=== PATIENT | male | born 1955 | race Caucasian/White ===

== ENCOUNTER 2025-01-11 19:27 | Inpatient (IN) | payer MEDICARE, SELFPAY ==
[2025-01-11 19:29] VITALS: BP 124/66; PULSE 95; RESP 18; TEMP 37.6; O2SAT 95
[2025-01-11 19:45] VITALS: BMI 33.3
--- NOTE | 2025-01-11 19:48 | US_ITS ---
PROCEDURE: VENOUS DUPLEX IMAG/LIMITED/UNI 01/11/2025 REASON FOR EXAM: Right lower extremity swelling TECHNIQUE: Grayscale color flow and doppler analysis of the right lower extremity. COMPARISON: None US/Venous Duplex Imag/Limited/Uni IMPRESSION: No acute occlusive deep vein thrombosis. Reading Location: [id number]
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
[2025-01-11] MEDS: 0.9% Normal Saline (1000mL) 1,000 ML 1000 ML IV (19:59)
[2025-01-11] MEDS: Acetaminophen 325 MG Tablet 650 MG PO (19:59)
[2025-01-11 20:24] LABS: Absolute Lymphocyte Count 0.96 X10^3/uL (0.83-4.51); Absolute Neutrophil Count 17.4 X10^3/uL (2.0-7.7); Basophil# 0.03 X10^3/uL; Basophil% 0.2 % (0-1); Hematocrit 39.6 % (40-54); Hemoglobin 13.3 g/dL (13.0-16.5); Lymphocyte # 0.96 X10^3/ul (0.83-4.51); Lymphocyte % 4.8 % (19-41); Mean Corp Hgb Conc 33.6 g/dL (32-36); Mean Corpuscular Hgb 28.8 pg (27.0-32.0); Mean Corpuscular Volume 85.7 fL (80-94); Mean Platelet Vol. 10.5 fl (6.2-12.0); Monocyte# 1.45 X10^3/uL; Monocyte% 7.3 % (0-10); NRBC Flagged by Analyzer 0 % (0-5); Neutrophil % 86.9 % (47-70); Platelet Count 290 K/mm3 (150-450); RBC Distribution Width CV 13.2 % (11.6-14.6); RBC Distribution Width SD 41.2 fl (35.1-43.9); Red Blood Count 4.62 M/mm3 (4.6-6.2)
[2025-01-11] MEDS: Ampicillin/Sulbactam 3 GM in 0.9% Normal Saline (100mL MB+) 100 ML IV (20:30)
[2025-01-11 20:55] LABS: Anion Gap 17 (5-15); BUN 17 mg/dL (4-19); Calcium,Total 8.6 mg/dL (7.6-11.0); Carbon Dioxide 18.7 mmol/L (21.0-32.0); Chloride 95 mmol/L (98-108); Creatinine, Serum 0.97 mg/dL (0.70-1.20); EST Glomerular Filtration Rate 85 (>60); Estimated Creatinine Clearance 82.14 ml/min (50-250); Glucose 157 mg/dL (70-99); Potassium 3.4 mmol/L (3.3-5.1); Sodium Level 131 mmol/L (133-145)
[2025-01-11 20:56] LABS: Lactic Acid 2.4 mmol/L (0.0-2.0)
[2025-01-11] MEDS: Vancomycin HCl 2,000 MG in 0.9% Normal Saline (500mL Bag) 500 ML 250 MG IV (21:04)
[2025-01-11 21:09] VITALS: BP 121/70; PULSE 90; RESP 30; RESP 32; O2SAT 88; O2SAT 92
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
[2025-01-11 22:15] VITALS: BP 114/70; PULSE 80; PULSE 86; RESP 32; TEMP 37.7; O2SAT 98
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
--- NOTE | 2025-01-11 22:40 | RAD_ITS ---
PROCEDURE: CHEST PA AND LATERAL 01/11/2025 REASON FOR EXAM: HYPOXIA TECHNIQUE: Frontal and lateral views of the chest. COMPARISON: None FINDINGS: Patient positioning on the lateral view limits this evaluation. Hardware: None Mediastinum: Mild cardiomegaly. There is perihilar fullness bilaterally. Lungs: Low lung volumes. Interstitial markings are diffusely increased. No significant pleural effusion. There is a nodular opacity in the left mid lung zone measuring 8 mm. Bones: Degenerative changes are identified within the thoracic spine. Surgical clips in the right upper quadrant of the abdomen. RAD/Chest PA and Lateral IMPRESSION: 1. Increased interstitial markings with mild cardiomegaly, as may be seen with pulmonary edema. Hypoventilatory changes or atypical/viral infection could also appear similar. 2. Nodular opacity measuring 8 mm in the left mid lung zone. Consider nonemer gent CT for further evaluation. Reading Location: [facility]
[2025-01-11 23:00] LABS: International Normalized Ratio 1.2
[2025-01-11 23:01] LABS: Partial Thromboplast Time 32.7 Seconds (24.1-36.2)
--- NOTE | 2025-01-11 23:35 | PCM.RX.CS ---
Consult Antibiotic Management Pharmacy has been consulted to manage selected antibiotic: Vancomycin Type of Intervention Type of Consult: New start Labs Labs: Sodium 131 mmol/L (133-145) L 01/11/25 20:00 Potassium 3.4 mmol/L (3.3-5.1) 01/11/25 20:00 Chloride 95 mmol/L (98-108) L 01/11/25 20:00 Carbon Dioxide 18.7 mmol/L (21.0-32.0) L 01/11/25 20:00 Anion Gap 17 (5-15) H 01/11/25 20:00 BUN 17 mg/dL (4-19) 01/11/25 20:00 Creatinine 0.97 mg/dL (0.70-1.20) 01/11/25 20:00 Est GFR (MDRD) Non-Af 85 (>60) 01/11/25 20:00 BUN/Creatinine Ratio 18.0 RATIO (10-20) 01/11/25 20:00 Glucose 157 mg/dL (70-99) H 01/11/25 20:00 Microbiology Microbiology: Microbiology 01/11/25 21:48 Mucosa - Nose SARS-CoV-2, Influenza & RSV (PCR) - Final Dosing Weight Weight used for dosin.4 kg Estimated Creatinine Clearance Estimated Creatinine Clearance: 82.14 Goal Trough Goal Trough: 15-20 mcg/mL Pharmacy Plan for Drug Dosing Pharmacy Plan for Drug Dosing: Pharmacy Service will continue to monitor and adjust dosing as required. 2GM GIVEN IN ER 01/11 @ 8866. START 1750MG Q12H AND DRAW TROUGH PRIOR TO 4TH DOSE Follow-Up Labs Follow-Up Labs: Trough: Vancomycin Date/Time Labs Ordered Labs to be done on [date and time ordered]: 01/13 @ 8111
[2025-01-11 23:42] VITALS: BMI 33.5
[2025-01-12] VITALS (7 sets, daily range): BP systolic 96–118; BP diastolic 58–68; PULSE 75–92; RESP 18–20; TEMP 36.7–38.4; O2SAT 90–95; BMI 33.3
[2025-01-12 00:05] LABS: Reflex Lactate? Y
[2025-01-12 00:58] LABS: Pro- Brain NATRIURETIC PEPTIDE 244 pg/mL (<=900)
[2025-01-12 01:06] LABS: Lactic Acid 2.1 mmol/L (0.0-2.0)
[2025-01-12] MEDS: 0.9% Normal Saline (1000mL) 1,000 ML 125 ML IV (01:36)
[2025-01-12] MEDS: Piperacil/Tazobactam 3.375 GM in 0.9% Normal Saline (50mL MB+) 50 ML IV ×4 (01:37→22:02)
[2025-01-12 05:42] LABS: Absolute Lymphocyte Count 0.82 X10^3/uL (0.83-4.51); Basophil# 0.04 X10^3/uL; Basophil% 0.2 % (0-1); Eosinophil# 0.03 X10^3/uL; Eosinophils% 0.1 % (0-5); Hematocrit 36.4 % (40-54); Hemoglobin 12.1 g/dL (13.0-16.5); Lymphocyte # 0.82 X10^3/ul (0.83-4.51); Lymphocyte % 3.9 % (19-41); Mean Corp Hgb Conc 33.2 g/dL (32-36); Mean Corpuscular Hgb 28.4 pg (27.0-32.0); Mean Corpuscular Volume 85.4 fL (80-94); Mean Platelet Vol. 10.9 fl (6.2-12.0); Monocyte# 1.21 X10^3/uL; Monocyte% 5.7 % (0-10); NRBC Flagged by Analyzer 0 % (0-5); Neutrophil % 89.2 % (47-70); POSITIVE MORPHOLOGY YES; Platelet Count 249 K/mm3 (150-450); RBC Distribution Width CV 13.3 % (11.6-14.6); RBC Distribution Width SD 41.5 fl (35.1-43.9); Red Blood Count 4.26 M/mm3 (4.6-6.2); White Blood Count 21.3 K/mm3 (4.4-11.0)
[2025-01-12 05:46] LABS: Differential Indicated SCAN CRITERIA MET
[2025-01-12 06:24] LABS: Albumin, Serum 3.3 g/dL (3.4-4.8); BUN 19 mg/dL (4-19); BUN/Creat Ratio 18.7 RATIO (10-20); EST Glomerular Filtration Rate 81 (>60); Estimated Creatinine Clearance 79.91 ml/min (50-250); Glucose 162 mg/dL (70-99); Protein, Total 6.2 g/dL (5.9-8.4)
[2025-01-12 06:25] LABS: ALB/GLOB Ratio 1.1 RATIO (0.9-2.4); AST(SGOT) 28 U/L (<=37); Alanine Aminotransfer ALT/SGPT 21 U/L (<=46); Alkaline Phosphatase 58 U/L (40-129); Anion Gap 16 (5-15); Calcium,Total 7.9 mg/dL (7.6-11.0); Carbon Dioxide 17.1 mmol/L (21.0-32.0); Chloride 99 mmol/L (98-108); Globulin 2.9 g/dL (2.2-4.2); Potassium 3.2 mmol/L (3.3-5.1); Sodium Level 132 mmol/L (133-145); Total Bilirubin 1.94 mg/dL (0.00-1.30)
[2025-01-12 07:04] LABS: Differential Comment SCANNED
[2025-01-12 07:44] LABS: Hemoglobin A1c 6.3 % (<=5.6)
--- NOTE | 2025-01-12 09:05 | WOUNDNOTE ---
wound photo: right lower leg
--- NOTE | 2025-01-12 09:05 | WOUNDNOTE ---
wound photo: right lower leg
[2025-01-12] MEDS: Acetaminophen 325 MG Tablet 650 MG PO ×2 (09:51→22:00)
[2025-01-12] MEDS: Enoxaparin 40 MG/0.4 ML Syringe SC (09:51)
[2025-01-12] MEDS: Vancomycin HCl 1,750 MG in 0.9% Normal Saline (500mL Bag) 500 ML 250 MG IV ×2 (10:44→20:23)
--- NOTE | 2025-01-12 12:50 | CASEMGMT ---
CHAY FREGOSO Assessment Face to Face with patient for initial transition planning/care coordination assessment. CHAY FREGOSO introduced self and role at [facility], pt voices understanding. Pt is A&Ox4 and is resting comfortably in bed and is calm. Pt's family at bedside including the pt's SO and children (Pt does not live with them, however). Care providers, pharmacy, and demographics verified. Admitting dx: Leg Edema LACE Strata: 1 PCP: No PCP. Provider list given Specialists: denies Preferred Pharmacy: [facility] Insurance: [employer] [facility] Prescription Benefit: Yes LNOK: Melchor (Son), Gabriel (Son), Jessie (SO of 25 years) Living Arrangements: Pt reports that he lives with his brother in a 2 story home with 5 steps to enter ADLs/IADLs: Pt has a history of a LLE amputation but reports that he is independent and uses crutches. PT is ordered and pending. Transportation: Self, family. Denies concerns DME: Crutches. Pt is currently requiring additional oxygen and may qualify for home oxygen use. A verbal list of local in-network DME companies were provided to the pt at this time. Pt prefers [employer]. HHC/SNF: Denies history or needs Pt?s goal: home Plan: Home with brother, follow for potential new oxygen and wound care needs. Pt was educated about the [facility] for wound care. However, pt declines the need currently. Pt states that he has enough support at home through himself, brother, and SO. Pt denies further questions or concerns at this time. Tawny Malin RN, CM
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
[2025-01-13 03:41] VITALS: BMI 34.0
[2025-01-13 04:24] VITALS: BP 106/59; PULSE 76; RESP 16; TEMP 37; O2SAT 93
[2025-01-13] MEDS: Piperacil/Tazobactam 3.375 GM in 0.9% Normal Saline (50mL MB+) 50 ML IV ×3 (05:10→21:27)
[2025-01-13 09:10] LABS: Absolute Lymphocyte Count 1.03 X10^3/uL (0.83-4.51); Absolute Neutrophil Count 22.5 X10^3/uL (2.0-7.7); Basophil# 0.04 X10^3/uL; Basophil% 0.2 % (0-1); Eosinophil# 0.02 X10^3/uL; Eosinophils% 0.1 % (0-5); Hematocrit 31.7 % (40-54); Hemoglobin 10.8 g/dL (13.0-16.5); Lymphocyte # 1.03 X10^3/ul (0.83-4.51); Lymphocyte % 4.1 % (19-41); Mean Corp Hgb Conc 34.1 g/dL (32-36); Mean Corpuscular Hgb 28.6 pg (27.0-32.0); Mean Corpuscular Volume 83.9 fL (80-94); Mean Platelet Vol. 10.6 fl (6.2-12.0); Monocyte# 1.13 X10^3/uL; Monocyte% 4.5 % (0-10); NRBC Flagged by Analyzer 0 % (0-5); Neutrophil % 89.7 % (47-70); POSITIVE DIFFERENTIAL YES; Platelet Count 229 K/mm3 (150-450); RBC Distribution Width CV 13.5 % (11.6-14.6); RBC Distribution Width SD 41.5 fl (35.1-43.9); Red Blood Count 3.78 M/mm3 (4.6-6.2); White Blood Count 25.1 K/mm3 (4.4-11.0)
[2025-01-13 09:13] LABS: Differential Indicated SCAN CRITERIA MET
[2025-01-13] MEDS: Enoxaparin 40 MG/0.4 ML Syringe SC (09:23)
[2025-01-13 09:43] LABS: Vancomycin, Trough Level 26.7 ug/mL (5.0-15.0)
[2025-01-13 09:53] VITALS: BP 103/60; PULSE 79; RESP 18; TEMP 37.2; O2SAT 90
--- NOTE | 2025-01-13 09:53 | PCM.RX.CS ---
Consult Antibiotic Management Pharmacy has been consulted to manage selected antibiotic: Vancomycin Type of Intervention Type of Consult: Follow-up Suspected Infection Suspected Infection: Skin/Soft tissue Prior Doses of Antibiotics Prior Doses of Antibiotics Received/Current Regimen: 01/11/25 @ 2104 Vancomycin 2000mg x1 01/12/25 @ 1044 Vancomycin 1750mg 01/12/25 @ 2022 Vancomycin 1750mg Labs Labs: Vancomycin Trough 26.7 ug/mL (5.0-15.0) H 01/13/25 08:45 Microbiology Microbiology: Microbiology 01/12/25 08:10 Wound - Leg, Right Gram Stain - Final 01/12/25 08:10 Wound - Leg, Right Wound Culture - Preliminary 01/12/25 08:10 Wound - Leg, Right Skin and Soft Tissue MRSA/MSSA (PCR - Final 01/12/25 03:15 Mucosa - Nasopharyngeal Respiratory Panel (PCR) - Final 01/11/25 21:48 Mucosa - Nose SARS-CoV-2, Influenza & RSV (PCR) - Final Dosing Weight Weight used for dosin kg Goal Trough Goal Trough: 15-20 mcg/mL Pharmacy Plan for Drug Dosing Pharmacy Plan for Drug Dosing: Hold Vancomycin due to trough of 26.7 Random Vancomycin level 01/13/25 @ 2200 Pharmacy Service will continue to monitor and adjust dosing as required. Follow-Up Labs Follow-Up Labs: Trough: Other Date/Time Labs Ordered Labs to be done on [date and time ordered]: 01/13/25 @ 2200
[2025-01-13 09:54] LABS: Anion Gap 16 (5-15); BUN 38 mg/dL (4-19); BUN/Creat Ratio 14.9 RATIO (10-20); Calcium,Total 7.4 mg/dL (7.6-11.0); Carbon Dioxide 15.8 mmol/L (21.0-32.0); Chloride 102 mmol/L (98-108); Creatinine, Serum 2.53 mg/dL (0.70-1.20); EST Glomerular Filtration Rate 27 (>60); Estimated Creatinine Clearance 31.81 ml/min (50-250); Glucose 135 mg/dL (70-99); Potassium 3.2 mmol/L (3.3-5.1); Sodium Level 133 mmol/L (133-145)
[2025-01-13 10:18] LABS: Platelet Estimate A (ADEQ)
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
[2025-01-13] MEDS: 0.9% Normal Saline (1000mL) 1,000 ML 150 ML IV (13:25)
[2025-01-13 14:00] VITALS: BP 107/76; PULSE 78; RESP 18; TEMP 37.2; O2SAT 90
--- NOTE | 2025-01-13 14:17 | CASEMGMT ---
RN notified KYLEE that patient's significant other is expressing concerns with patient and his lifestyle. KYLEE met with patient's significant other Jessie. Jessie told KYLEE that she lives in [place]. 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 Patient states he lives at his brother's home, but that is not true. 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 Patient's brother does not live there. Patient will go to [place] a few times a week and that is it. Patient is not caring for himself. KYLEE explained to Jessie that patient is his own person and is unfortunately making bad decisions, but patient has that right. KYLEE did provide Jessie with the phone number for Adult Protective Services. KYLEE told Jessie that SW can call when patient is discharged, but it is not guaranteed they will be able to do anything if patient is alert and oriented. Jessie expressed understanding. Jessie's phone then rang and she told KYLEE she has to answer the phone. Bettina Ramos [employer] APPRAISER NAUN
[2025-01-13] MEDS: Acetaminophen 325 MG Tablet 650 MG PO (17:09)
[2025-01-14] VITALS (7 sets, daily range): BP systolic 95–110; BP diastolic 62–66; PULSE 61–72; RESP 17–25; TEMP 36.4–37.4; O2SAT 91–96; BMI 34.2
--- NOTE | 2025-01-14 00:01 | PHA.PHARE_ITS ---
Consult Antibiotic Management Pharmacy has been consulted to manage selected antibiotic: Vancomycin Type of Intervention Type of Consult: Follow-up Labs Labs: Sodium 133 mmol/L (133-145) 01/13/25 08:45 Potassium 3.2 mmol/L (3.3-5.1) L 01/13/25 08:45 Chloride 102 mmol/L (98-108) 01/13/25 08:45 Carbon Dioxide 15.8 mmol/L (21.0-32.0) L 01/13/25 08:45 Anion Gap 16 (5-15) H 01/13/25 08:45 BUN 38 mg/dL (4-19) H 01/13/25 08:45 Creatinine 2.53 mg/dL (0.70-1.20) H 01/13/25 08:45 Est GFR (MDRD) Non-Af 27 (>60) L 01/13/25 08:45 BUN/Creatinine Ratio 14.9 RATIO (10-20) 01/13/25 08:45 Glucose 135 mg/dL (70-99) H 01/13/25 08:45 Vancomycin Trough 26.7 ug/mL (5.0-15.0) H 01/13/25 08:45 Random Vancomycin 13.0 ug/mL (0.0-15.0) 01/13/25 23:05 Microbiology Microbiology: Microbiology 01/11/25 20:00 Blood Culture (Wb) - Anticubital Right Blood Culture - Preliminary No growth in 48 hours. 01/11/25 20:00 Blood Culture (Wb) - Anticubital Left Blood Culture - Pre liminary No growth in 48 hours. 01/12/25 08:10 Wound - Leg, Right Gram Stain - Final 01/12/25 08:10 Wound - Leg, Right Wound Culture - Preliminary 01/12/25 08:10 Wound - Leg, Right Skin and Soft Tissue MRSA/MSSA (PCR - Final 01/12/25 03:15 Mucosa - Nasopharyngeal Respiratory Panel (PCR) - Final 01/11/25 21:48 Mucosa - Nose SARS-CoV-2, Influenza & RSV (PCR) - Final Dosing Weight Weight used for dosin.4 kg Estimated Creatinine Clearance Estimated Creatinine Clearance: 32 Goal Trough Goal Trough: 15-20 mcg/mL Pharmacy Plan for Drug Dosing Pharmacy Plan for Drug Dosing: Random vancomycin level was 13.0. Dosing can be re-instituted - dosing calculator estimated a new dose of 1000mg q12h will give a trough of 13.4. This is conservative considering the recent increase in SCr. A trough level will be drawn prior to fourth dose of the new regimen. Pharmacy Service will continue to monitor and adjust dosing as required. Follow-Up Labs Follow-Up Labs: Trough: Vancomycin Date/Time Labs Ordered Labs to be done on [date and time ordered]: 01/15/25 @1200
[2025-01-14] MEDS: Vancomycin Trough/Random Due 1 LAB MC (00:14)
[2025-01-14] MEDS: Vancomycin IV 1,000 MG/200 ML BAG 200 MG IV ×2 (01:23→12:11)
[2025-01-14] MEDS: 0.9% Normal Saline (1000mL) 1,000 ML 150 ML IV (01:28)
[2025-01-14] MEDS: Piperacil/Tazobactam 3.375 GM in 0.9% Normal Saline (50mL MB+) 50 ML IV ×2 (06:50→13:37)
[2025-01-14 06:53] LABS: Absolute Lymphocyte Count 1.05 X10^3/uL (0.83-4.51); Absolute Neutrophil Count 22.3 X10^3/uL (2.0-7.7); Basophil# 0.06 X10^3/uL; Basophil% 0.2 % (0-1); Eosinophil# 0.01 X10^3/uL; Hematocrit 34.1 % (40-54); Hemoglobin 11.3 g/dL (13.0-16.5); Lymphocyte # 1.05 X10^3/ul (0.83-4.51); Lymphocyte % 4.2 % (19-41); Mean Corp Hgb Conc 33.1 g/dL (32-36); Mean Corpuscular Hgb 28.4 pg (27.0-32.0); Mean Corpuscular Volume 85.7 fL (80-94); Mean Platelet Vol. 11.5 fl (6.2-12.0); Monocyte# 1.22 X10^3/uL; Monocyte% 4.9 % (0-10); NRBC Flagged by Analyzer 0 % (0-5); Neutrophil # 22.26 X10^3/uL (2.7-7.7); Neutrophil % 89.2 % (47-70); POSITIVE DIFFERENTIAL YES; Platelet Count 246 K/mm3 (150-450); RBC Distribution Width CV 13.7 % (11.6-14.6); Red Blood Count 3.98 M/mm3 (4.6-6.2)
[2025-01-14 06:54] LABS: Differential Indicated SCAN CRITERIA MET
[2025-01-14 07:40] LABS: Anion Gap 17 (5-15); BUN 58 mg/dL (4-19); BUN/Creat Ratio 13.8 RATIO (10-20); Calcium,Total 7.9 mg/dL (7.6-11.0); Carbon Dioxide 15.1 mmol/L (21.0-32.0); Chloride 100 mmol/L (98-108); Creatinine, Serum 4.21 mg/dL (0.70-1.20); EST Glomerular Filtration Rate 15 (>60); Estimated Creatinine Clearance 19.17 ml/min (50-250); Glucose 116 mg/dL (70-99); Potassium 3.2 mmol/L (3.3-5.1); Sodium Level 132 mmol/L (133-145)
[2025-01-14 08:37] LABS: Mucous, Urine 0 SEEN /hpf (<or=2+); Red Blood Cells-Urine 0 SEEN /hpf (0-5); Squamous Epithelial Cells - UA 0 SEEN /hpf (0-5); White Blood Cells 0 SEEN /hpf (0-5)
[2025-01-14] MEDS: Enoxaparin 40 MG/0.4 ML Syringe SC (09:04)
[2025-01-14 09:17] LABS: Color, Urine Yellow (Yellow); Glucose, Dipstick Normal (Normal); Ketone-Dipstick Negative (Negative); Leukocyte Esterase-Dipstick Negative /ul (Negative); Nitrite-Dipstick Negative (Negative); Occult Blood-Urine 25 /ul (Negative); Protein-Dipstick 100 mg/dl (Negative); Urine Bilirubin Dipstick Negative (Negative); Urine Clarity Sl. Cloudy (Clear); Urine Urobilinogen Normal (Normal)
[2025-01-14 09:23] LABS: Bacteria 2+ /hpf (None Seen)
[2025-01-14] MEDS: Acetaminophen 325 MG Tablet 650 MG PO ×2 (09:38→21:25)
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
[2025-01-14] MEDS: 0.9% Normal Saline (1000mL) 1,000 ML 100 ML IV (14:56)
--- NOTE | 2025-01-14 15:07 | CASEMGMT ---
SW met with patient. Introduced self and role at [facility]. SW asked patient about living out of his van. Patient said he spends more time in his car than he does his home. 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 Patient denies any need for resources. Bettina Ramos [employer] APPRENTICE NAUN
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
[2025-01-14 17:15] LABS: Urine Chloride < 20 mmol/L (Not Establ.); Urine Potassium 15.7 mmol/L (Not Establ.); Urine Sodium 33 mmol/L (Not Establ.)
[2025-01-14] MEDS: Ceftriaxone 2 GM in 0.9% Normal Saline (50mL MB+) 50 ML IV (17:35)
[2025-01-14] MEDS: Linezolid 600 MG Tablet PO (21:24)
[2025-01-15] MEDS: 0.9% Normal Saline (1000mL) 1,000 ML 100 ML IV ×3 (00:52→21:11)
[2025-01-15 03:48] VITALS: BP 111/68; PULSE 64; RESP 18; TEMP 36.5; O2SAT 95
[2025-01-15 04:14] VITALS: BMI 34.2
[2025-01-15 06:32] LABS: Absolute Neutrophil Count 16.1 X10^3/uL (2.0-7.7); Basophil# 0.05 X10^3/uL; Basophil% 0.3 % (0-1); Eosinophil# 0.13 X10^3/uL; Eosinophils% 0.7 % (0-5); Hematocrit 31.9 % (40-54); Lymphocyte % 5.8 % (19-41); Mean Corp Hgb Conc 34.5 g/dL (32-36); Mean Corpuscular Hgb 28.7 pg (27.0-32.0); Mean Corpuscular Volume 83.3 fL (80-94); Monocyte# 1.21 X10^3/uL; Monocyte% 6.4 % (0-10); NRBC Flagged by Analyzer 0 % (0-5); Neutrophil % 85.1 % (47-70); Platelet Count 312 K/mm3 (150-450); RBC Distribution Width CV 13.7 % (11.6-14.6); RBC Distribution Width SD 41.7 fl (35.1-43.9); Red Blood Count 3.83 M/mm3 (4.6-6.2); White Blood Count 18.9 K/mm3 (4.4-11.0)
[2025-01-15 06:48] LABS: Anion Gap 15 (5-15); BUN 72 mg/dL (4-19); BUN/Creat Ratio 13.4 RATIO (10-20); Calcium,Total 7.6 mg/dL (7.6-11.0); Carbon Dioxide 14.1 mmol/L (21.0-32.0); Chloride 103 mmol/L (98-108); Creatinine, Serum 5.39 mg/dL (0.70-1.20); EST Glomerular Filtration Rate 11 (>60); Estimated Creatinine Clearance 14.99 ml/min (50-250); Glucose 118 mg/dL (70-99); Potassium 3.2 mmol/L (3.3-5.1); Sodium Level 132 mmol/L (133-145)
--- NOTE | 2025-01-15 07:41 | US_ITS ---
PROCEDURE: KIDNEY AND BLADDER 01/15/2025 REASON FOR EXAM: RENAL FAILURE TECHNIQUE: Ultrasound imaging of Kidney. COMPARISON: None. FINDINGS: The right kidney measures 13.5 x 6.6 x 5.5 cm. Right renal cortical thickness measuring 1.6 cm. A simple cyst is noted in the midportion of the right kidney measuring 0.8 x 0.8 x 0.8 cm. Right perinephric free fluid is noted. The left kidney measures 12.3 x 5.8 x 7.3 cm. Left renal cortical thickness measuring 1.5 cm. No evidence of hydronephrosis or calculi on either side. Underdistended bladder. Patient voided directly prior to exam. US/Kidney and Bladder IMPRESSION: No evidence of hydronephrosis or calculi on either side. Normal size of the kidneys. Right renal simple cyst measuring 0.8 cm. No follow-up is needed. Minimal amount of right perinephric free fluid. Reading Location: [facility]
[2025-01-15] MEDS: Ceftriaxone 2 GM in 0.9% Normal Saline (50mL MB+) 50 ML IV (08:57)
[2025-01-15] MEDS: Enoxaparin 40 MG/0.4 ML Syringe SC (08:57)
[2025-01-15] MEDS: Linezolid 600 MG Tablet PO ×2 (08:58→21:12)
[2025-01-15 09:11] VITALS: BP 121/67; PULSE 62; RESP 18; TEMP 36.4; O2SAT 95
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
--- NOTE | 2025-01-15 13:09 | NURSING ---
report called and given to Christina on MS3
[2025-01-15 15:05] VITALS: BP 122/74; PULSE 60; RESP 18; TEMP 37.1; O2SAT 95
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
[2025-01-15 21:09] VITALS: BP 122/66; PULSE 65; RESP 18; TEMP 36.6; O2SAT 94
[2025-01-15] MEDS: Acetaminophen 325 MG Tablet 650 MG PO (21:11)
[2025-01-16 02:30] VITALS: BP 106/53; PULSE 85; RESP 20; TEMP 36.6; O2SAT 94
[2025-01-16 03:39] VITALS: BMI 34.6
[2025-01-16 05:40] LABS: Absolute Lymphocyte Count 1.57 X10^3/uL (0.83-4.51); Absolute Neutrophil Count 13.2 X10^3/uL (2.0-7.7); Basophil# 0.04 X10^3/uL; Basophil% 0.2 % (0-1); Eosinophil# 0.39 X10^3/uL; Eosinophils% 2.3 % (0-5); Hematocrit 32.4 % (40-54); Hemoglobin 11.2 g/dL (13.0-16.5); Lymphocyte # 1.57 X10^3/ul (0.83-4.51); Lymphocyte % 9.3 % (19-41); Mean Corp Hgb Conc 34.6 g/dL (32-36); Mean Corpuscular Hgb 28.7 pg (27.0-32.0); Mean Corpuscular Volume 83.1 fL (80-94); Mean Platelet Vol. 10.6 fl (6.2-12.0); Monocyte# 1.23 X10^3/uL; Monocyte% 7.3 % (0-10); NRBC Flagged by Analyzer 0 % (0-5); Neutrophil % 78.2 % (47-70); Platelet Count 386 K/mm3 (150-450); RBC Distribution Width CV 14.1 % (11.6-14.6); RBC Distribution Width SD 42.5 fl (35.1-43.9); White Blood Count 16.9 K/mm3 (4.4-11.0)
[2025-01-16 06:03] LABS: Anion Gap 17 (5-15); BUN 77 mg/dL (4-19); BUN/Creat Ratio 13.2 RATIO (10-20); Calcium,Total 7.8 mg/dL (7.6-11.0); Carbon Dioxide 12.7 mmol/L (21.0-32.0); Chloride 104 mmol/L (98-108); Creatinine, Serum 5.81 mg/dL (0.70-1.20); EST Glomerular Filtration Rate 10 (>60); Estimated Creatinine Clearance 13.99 ml/min (50-250); Glucose 114 mg/dL (70-99); Potassium 3.2 mmol/L (3.3-5.1); Sodium Level 133 mmol/L (133-145)
--- NOTE | 2025-01-16 06:22 | PN.HOSP_ITS ---
Subjective Subjective No issues overnight, still maintaining oxygen saturations on room air creatinine continues to climb I do appreciate nephrology's assistance. He does state that he is feeling better Objective Data Objective Data Vital Signs: Vital Signs Temp Pulse Resp BP Pulse Ox O2 Del Method O2 Flow Rate 97.9 F 85 20 H 106/53 L 94 Room Air 2 01/16/25 02:30 01/16/25 02:30 01/16/25 02:30 01/16/25 02:30 01/16/25 02:30 01/16/25 02:30 01/14/25 08:29 FiO2 21 01/12/25 20:10 Oxygen Flow Rate (L/min) 2 Oxygen Delivery Method Room Air Weight: 227 lb 15.327 oz Body Mass Index (BMI) 34.6 Intake & Output: Intake and Output for Last 24 Hours 01/15/25 01/16/25 01/17/25 03:59 03:59 03:59 Intake Total 2863.75 / 2863.75 2411.67 / 2411.67 Output Total 100 / 100 600 / 600 Balance 2763.75 / 2763.75 1811.67 / 1811.67 Lab / Micro Data 01/16/25 05:10 01/16/25 05:10 Labs: Laboratory Results - last 24 hr 01/15/25 06:15: WBC 18.9 H, RBC 3.83 L, Hgb 11.0 L, Hct 31.9 L, MCV 83.3, MCH 28.7, MCHC 34.5, RDW Std Deviation 41.7, RDW Coeff of Pedro 13.7, Plt Count 312, MPV 11.0, Immature Gran % (Auto) 1.700 H, Neut % (Auto) 85.1 H, Lymph % (Auto) 5.8 L, Wharton % (Auto) 6.4, Eos % (Auto) 0.7, Baso % (Auto) 0.3, Absolute Neuts (auto) 16.1 H, Absolute Lymphs (auto) 1.10, Nucleated RBC % 0, Sodium 132 L, P otassium 3.2 L, Chloride 103, Carbon Dioxide 14.1 L, Anion Gap 15, BUN 72 H, C reatinine 5.39 H, Estim Creat Clear Calc 14.99 L, Est GFR (MDRD) Non-Af 11 L, BUN/Creatinine Ratio 13.4, Glucose 118 H, Calcium 7.6 01/16/25 05:10: WBC 16.9 H, RBC 3.90 L, Hgb 11.2 L, Hct 32.4 L, MCV 83.1, MCH 28.7, MCHC 34.6, RDW Std Deviation 42.5, RDW Coeff of Pedro 14.1, Plt Count 386, MPV 10.6, Immature Gran % (Auto) 2.700 H, Neut % (Auto) 78.2 H, Lymph % (Auto) 9.3 L, Wharton % (Auto) 7.3, Eos % (Auto) 2.3, Baso % (Auto) 0.2, Absolute Neuts (auto) 13.2 H, Absolute Lymphs (auto) 1.57, Nucleated RBC % 0, Sodium 133, P otassium 3.2 L, Chloride 104, Carbon Dioxide 12.7 L, Anion Gap 17 H, BUN 77 H, C reatinine 5.81 H, Estim Creat Clear Calc 13.99 L, Est GFR (MDRD) Non-Af 10 L, BUN/Creatinine Ratio 13.2, Glucose 114 H, Calcium 7.8 Micro: Microbiology 01/12/25 08:10 Wound - Leg, Right Gram Stain - Final 01/12/25 08:10 Wound - Leg, Right Wound Culture - Preliminary Streptococcus group G Coag Negative Staph Staphylococcus aureus 01/12/25 08:10 Wound - Leg, Right Skin and Soft Tissue MRSA/MSSA (PCR - Final 01/14/25 02:59 Sputum, Expectorated/Coughed Gram Stain - Final 01/14/25 02:59 Sputum, Expectorated/Coughed Respiratory Culture - Final 01/14/25 03:00 Urine, Random Legionella Antigen - Final 01/14/25 03:00 Urine, Random Streptococcus pneumoniae Antigen (M - Final 01/11/25 20:00 Blood Culture (Wb) - Anticubital Right Blood Culture - Preliminary No growth in 48 hours. 01/11/25 20:00 Blood Culture (Wb) - Anticubital Left Blood Culture - Preliminary No growth in 48 hours. 01/12/25 03:15 Mucosa - Nasopharyngeal Respiratory Panel (PCR) - Final 01/11/25 21:48 Mucosa - Nose SARS-CoV-2, Influenza & RSV (PCR) - Final Radiography Diagnostic Testing: Radiology Impression Renal Ultrasound 01/15/25 07:41 IMPRESSION: No evidence of hydronephrosis or calculi on either side. Normal size of the kidneys. Right renal simple cyst measuring 0.8 cm. No follow-up is needed. Minimal amount of right perinephric free fluid. Reading Location: [place] [id number] Physical Exam Narrative General: Alert, oriented x3, Cooperative, No apparent distress HEENT: Atraumatic, PERRLA, EOMI, Normocephalic Oral: Moist Mucosa Neck: Supple, No JVD Lungs: Diminished, Normal air movement, No rhonchi, No wheeze, No rales Cardiovascular: Regular rate, Regular Rhythm, Normal S1, Normal S2, No murmurs Abdomen: Soft, Non Tender, Non-Distended, No Hepato-splenomegaly Extremities: Edema, Capillary Refill Less than 3 Seconds Skin: Right lower extremity is dressed and wrapped Musculoskeletal: No Tenderness to Palpation of Joints or Extremities, left AKA Neurological: No focal neurological deficits, moves all extremities Psych/Mental Status: Normal affect, appropriate Assessment & Plan Assessment/Plan (1) Cellulitis: PLAN: Plan 1. Sepsis secondary to right lower extremity cellulitis with transient hypoxia and now acute renal failure secondary to ATN with an anion gap metabolic acidosis ? He does have a history of an AKA of the left lower extremity ? Duplex of the right lower extremity was negative for DVT ? White count is improving, appreciate infectious disease assistance, he was transitioned to Zyvox and Rocephin secondary to his ATN ?FENa demonstrated a mixed picture at 1.3% possibly intrinsic possibly prerenal ? Appreciate nephrology's assistance ? Renal ultrasound was unremarkable ? Consistent hypokalemia 3.2 will continue to monitor ? His bicarb continues to drop to 12.2 and his renal function continues to worsen, we will transition fluids to a bicarb drip for 1 L pending repeat nephrology evaluation today DVT: Lovenox Charges/Coding Visit Charges Inpatient E&M: 78933 Subs Hosp L2
[2025-01-16] MEDS: 0.9% Normal Saline (1000mL) 1,000 ML 100 ML IV ×2 (06:26→18:32)
[2025-01-16] MEDS: Sodium Bicarbonate 50 MEQ in Dextrose 5%-Water (1000mL Bag) 1,000 ML 100 MEQ IV (06:44)
[2025-01-16] MEDS: Potassium Chloride Oral Tablet 20 MEQ 40 MEQ PO (06:44)
[2025-01-16] MEDS: Linezolid 600 MG Tablet PO ×2 (08:23→21:33)
[2025-01-16] MEDS: Enoxaparin 40 MG/0.4 ML Syringe SC (08:23)
[2025-01-16 08:31] VITALS: BP 122/62; PULSE 62; RESP 18; TEMP 36.8; O2SAT 94
[2025-01-16] MEDS: Ceftriaxone 2 GM in 0.9% Normal Saline (50mL MB+) 50 ML IV (10:02)
[2025-01-16 12:01] VITALS: BP 132/71; PULSE 60; RESP 16; TEMP 36.4; O2SAT 94
[2025-01-16 16:22] VITALS: BP 136/75; PULSE 63; RESP 16; TEMP 36.8; O2SAT 95
[2025-01-16 21:59] VITALS: BP 155/75; PULSE 66; RESP 18; TEMP 36.7; O2SAT 96
[2025-01-17 03:11] VITALS: BMI 34.6
[2025-01-17] MEDS: 0.9% Normal Saline (1000mL) 1,000 ML 100 ML IV (04:20)
[2025-01-17 04:22] VITALS: BP 100/64; PULSE 68; RESP 16; TEMP 36.4; O2SAT 95
[2025-01-17 09:05] LABS: Absolute Lymphocyte Count 1.19 X10^3/uL (0.83-4.51); Absolute Neutrophil Count 12.9 X10^3/uL (2.0-7.7); Basophil# 0.07 X10^3/uL; Basophil% 0.4 % (0-1); Eosinophil# 0.59 X10^3/uL; Eosinophils% 3.5 % (0-5); Hematocrit 34.4 % (40-54); Hemoglobin 11.7 g/dL (13.0-16.5); Lymphocyte # 1.19 X10^3/ul (0.83-4.51); Lymphocyte % 7.1 % (19-41); Mean Corpuscular Hgb 28.5 pg (27.0-32.0); Mean Corpuscular Volume 83.7 fL (80-94); Mean Platelet Vol. 10.2 fl (6.2-12.0); Monocyte# 1.15 X10^3/uL; Monocyte% 6.9 % (0-10); NRBC Flagged by Analyzer 0 % (0-5); Neutrophil # 12.91 X10^3/uL (2.7-7.7); Neutrophil % 77.4 % (47-70); Platelet Count 452 K/mm3 (150-450); RBC Distribution Width CV 13.9 % (11.6-14.6); RBC Distribution Width SD 42.4 fl (35.1-43.9); Red Blood Count 4.11 M/mm3 (4.6-6.2); White Blood Count 16.7 K/mm3 (4.4-11.0)
[2025-01-17 09:06] VITALS: BP 135/64; PULSE 64; RESP 18; TEMP 36.7; O2SAT 97
[2025-01-17] MEDS: Ceftriaxone 2 GM in 0.9% Normal Saline (50mL MB+) 50 ML IV (09:15)
[2025-01-17] MEDS: Linezolid 600 MG Tablet PO ×2 (09:15→21:25)
[2025-01-17 09:27] LABS: Anion Gap 18 (5-15); BUN 71 mg/dL (4-19); BUN/Creat Ratio 11.7 RATIO (10-20); Calcium,Total 7.8 mg/dL (7.6-11.0); Carbon Dioxide 11.9 mmol/L (21.0-32.0); Chloride 105 mmol/L (98-108); Creatinine, Serum 6.07 mg/dL (0.70-1.20); EST Glomerular Filtration Rate 9 (>60); Estimated Creatinine Clearance 13.37 ml/min (50-250); Glucose 106 mg/dL (70-99); Magnesium 2.1 mg/dL (1.5-2.2); Potassium 3.2 mmol/L (3.3-5.1); Sodium Level 135 mmol/L (133-145)
[2025-01-17 09:46] LABS: Phosphorus 3.6 mg/dL (2.7-4.5)
--- NOTE | 2025-01-17 11:02 | PN.RENAL_ITS ---
Subjective Subjective No new complaints today. Objective Data Objective Data Vital Signs: Vital Signs Temp Pulse Resp BP Pulse Ox O2 Del Method O2 Flow Rate 98.1 F 64 18 135/64 H 97 Room Air 2 01/17/25 09:06 01/17/25 09:06 01/17/25 09:06 01/17/25 09:06 01/17/25 09:06 01/17/25 09:06 01/14/25 08:29 FiO2 21 01/12/25 20:10 Oxygen Flow Rate (L/min) 2 Oxygen Delivery Method Room Air Weight: 103.2 kg Body Mass Index (BMI) 34.6 Intake & Output: Intake and Output for Last 24 Hours 01/15/25 01/16/25 01/17/25 23:59 23:59 23:59 Intake Total 3405.00 / 3405.00 2806.67 / 2806.67 1531.67 / 1531.67 Output Total 600 / 600 350 / 350 900 / 900 Balance 2805.00 / 2805.00 2456.67 / 2456.67 631.67 / 631.67 Lab / Micro Data 01/17/25 08:56 01/17/25 08:56 Labs: Laboratory Results - last 24 hr 01/17/25 08:56: WBC 16.7 H, RBC 4.11 L, Hgb 11.7 L, Hct 34.4 L, MCV 83.7, MCH 28.5, MCHC 34.0, RDW Std Deviation 42.4, RDW Coeff of Pedro 13.9, Plt Count 452 H, MPV 10.2, Immature Gran % (Auto) 4.700 H, Neut % (Auto) 77.4 H, Lymph % (Auto) 7.1 L, Crook % (Auto) 6.9, Eos % (Auto) 3.5, Baso % (Auto) 0.4, Absolute Neuts (auto) 12.9 H, Absolute Lymphs (auto) 1.19, Nucleated RBC % 0, Sodium 135, P otassium 3.2 L, Chloride 105, Carbon Dioxide 11.9 L, Anion Gap 18 H, BUN 71 H, C reatinine 6.07 H, Estim Creat Clear Calc 13.37 L, Est GFR (MDRD) Non-Af 9 L, BUN/Creatinine Ratio 11.7, Glucose 106 H, Calcium 7.8, Phosphorus 3.6, Magnesium 2.1 Micro: Microbiology 01/11/25 20:00 Blood Culture (Wb) - Anticubital Right Blood Culture - Final No growth in 5 days. 01/11/25 20:00 Blood Culture (Wb) - Anticubital Left Blood Culture - Final No growth in 5 days. 01/14/25 03:00 Urine, Random Urine Culture - Final Culture exhibits no growth. 01/12/25 08:10 Wound - Leg, Right Gram Stain - Final 01/12/25 08:10 Wound - Leg, Right Wound Culture - Preliminary Streptococcus group G Coag Negative Staph Staphylococcus species 01/12/25 08:10 Wound - Leg, Right Skin and Soft Tissue MRSA/MSSA (PCR - Final 01/14/25 02:59 Sputum, Expectorated/Coughed Gram Stain - Final 01/14/25 02:59 Sputum, Expectorated/Coughed Respiratory Culture - Final 01/14/25 03:00 Urine, Random Legionella Antigen - Final 01/14/25 03:00 Urine, Random Streptococcus pneumoniae Antigen (M - Final 01/12/25 03:15 Mucosa - Nasopharyngeal Respiratory Panel (PCR) - Final 01/11/25 21:48 Mucosa - Nose SARS-CoV-2, Influenza & RSV (PCR) - Final Physical Exam Const alert, oriented x3, no apparent distress and average body habitus General Appearance: well developed Orientation / Consciousness: oriented to person, oriented to place and oriented to time HEENT normocephalic Neck no lymphadenopathy Resp no use of accessory muscles and clear to auscultation bilaterally Cardio regular rate, no murmurs and no rub GI non-tender Auscultation: normoactive bowel sounds Palpation: soft Psych cooperative Assessment & Plan Assessment/Plan (1) KIRSTEN (acute kidney injury): PLAN: Acute renal failure. Normal baseline creatinine. Persistent KIRSTEN, presumably ATN. Renal ultrasound without any hydronephrosis. Urine analysis with 2-3+ protein, will send for quantification. Urine sodium was elevated. Differential diagnosis include ATN due to sepsis, ATN due to vancomycin, infection related GN however urine does not appear to be like GN. I will send the C3 level just in case. He is off vancomycin and is on currently linezolid. Creatinine still increasing however urine output has been okay. The rate of creatinine rise is slowing down. Hopefully recovery soon. He is getting somewhat acidotic, will change IV fluids to bicarbonate. Hold off on renal replacement therapy for now.
[2025-01-17] MEDS: Sodium Bicarbonate 150 MEQ in Dextrose 5%-Water (1000mL Bag) 1,000 ML 100 MEQ IV ×2 (11:27→22:36)
[2025-01-17 14:00] VITALS: BP 134/64; PULSE 71; RESP 18; TEMP 36.6; O2SAT 97
--- NOTE | 2025-01-17 14:59 | PCM.PN.ID ---
Physical Exam Narrative Feeling better, leg improved, making urine, no fever Const alert and no apparent distress Resp normal air movement and clear to auscultation bilaterally Cardio regular rate and regular rhythm GI soft to palpation, non-tender and non-distended Skin Skin Narrative: RLE improved redness and swelling ID ID: Route of nutrition/ use of supplements: [] Nutritional Intake: [] IV Site: [] Wilson Catheter: [] Assessment & Plan Assessment/Plan (1) Sepsis: PLAN: sepsis due to RLE cellulitis. Wound cx with staph, GGS, and CONS. With KIRSTEN, will cont with linezolid and ceftriaxone for now. Will follow (2) KIRSTEN (acute kidney injury):
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
[2025-01-17 16:49] LABS: Protein, Urine (Random) 6.4 mg/dL (0.0-12.0); Protein:Creat Ratio 176 mg/g CRE (0-200)
[2025-01-17 20:20] VITALS: BP 150/79; PULSE 71; RESP 16; TEMP 37.2; O2SAT 96
[2025-01-18 02:15] VITALS: BP 151/79; PULSE 69; RESP 18; TEMP 36.9; O2SAT 97
[2025-01-18 05:30] VITALS: BMI 34.4
[2025-01-18 07:21] LABS: Hematocrit 30.7 % (40-54); Hemoglobin 10.6 g/dL (13.0-16.5); Mean Corp Hgb Conc 34.5 g/dL (32-36); Mean Corpuscular Hgb 28.7 pg (27.0-32.0); Mean Corpuscular Volume 83.2 fL (80-94); POSITIVE COUNT YES; POSITIVE MORPHOLOGY YES; Platelet Count 447 K/mm3 (150-450); RBC Distribution Width CV 13.8 % (11.6-14.6); RBC Distribution Width SD 41.8 fl (35.1-43.9); Red Blood Count 3.69 M/mm3 (4.6-6.2); White Blood Count 14.8 K/mm3 (4.4-11.0)
[2025-01-18 07:24] LABS: Differential Indicated MANUAL DIFF
[2025-01-18 07:43] LABS: Anion Gap 16 (5-15); BUN 70 mg/dL (4-19); BUN/Creat Ratio 11.6 RATIO (10-20); Calcium,Total 7.5 mg/dL (7.6-11.0); Carbon Dioxide 16.2 mmol/L (21.0-32.0); Chloride 103 mmol/L (98-108); Creatinine, Serum 6.03 mg/dL (0.70-1.20); EST Glomerular Filtration Rate 9 (>60); Estimated Creatinine Clearance 13.47 ml/min (50-250); Glucose 162 mg/dL (70-99); Potassium 3.2 mmol/L (3.3-5.1); Sodium Level 135 mmol/L (133-145)
[2025-01-18 07:53] LABS: Eosinophil 6 % (0-5); Lymphocyte 3 % (19-41); Metamyelocyte 1 % (0-1); Monocyte 6 % (0-10); Myelocyte 1 % (0-0); Neutrophil-Segmented 83 % (47-70); Nucleated Red Bld Cells,Manual 1 % (0-5); Total Cells Counted 100 (MANUAL DIFF)
[2025-01-18 07:56] LABS: Ovalocyte 1+; Platelet Estimate A (ADEQ); Polychromasia 1+; Red Cell Morphology NORM C+C NORMAL (NORM C&C)
[2025-01-18 07:57] LABS: Absolute Lymphocyte Count 0.44 X10^3/uL (0.83-4.51); Absolute Neutrophil Count 12.3 X10^3/uL (2.0-7.7)
[2025-01-18] MEDS: Enoxaparin 30 MG/0.3 ML Syringe SC (08:37)
[2025-01-18] MEDS: Ceftriaxone 2 GM in 0.9% Normal Saline (50mL MB+) 50 ML IV (08:37)
[2025-01-18] MEDS: Linezolid 600 MG Tablet PO (08:38)
[2025-01-18] MEDS: 0.9% Saline Lock 10 ML Syringe IV (08:39)
--- NOTE | 2025-01-18 08:42 | WOUNDNOTE ---
wound photo: right lower leg
--- NOTE | 2025-01-18 08:42 | WOUNDNOTE ---
wound photo: right lower leg
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
--- NOTE | 2025-01-18 09:36 | PCM.PN.ID ---
Physical Exam Narrative Feeling better, leg pain much improved, no fever Const alert and no apparent distress General Appearance: cooperative Resp normal air movement and clear to auscultation bilaterally GI soft to palpation, non-tender and non-distended Extremity General Extremity: edema Skin Skin Narrative: reviewed photos, redness improved ID ID: Route of nutrition/ use of supplements: [] Nutritional Intake: [] IV Site: [] Wilson Catheter: [] Assessment & Plan Assessment/Plan (1) Sepsis: PLAN: sepsis due to RLE cellulitis. Wound cx with staph, GGS, and CONS. Cr leveling off. Will cont with ceftriaxone for now. Plan on d/c home with po cefdinir 300mg daily for 5 more days. Will follow prn (2) KIRSTEN (acute kidney injury):
[2025-01-18 10:00] VITALS: BP 144/70; PULSE 63; RESP 18; TEMP 36.9; O2SAT 95
[2025-01-18] MEDS: Potassium Chloride Oral Tablet 20 MEQ 40 MEQ PO (10:21)
--- NOTE | 2025-01-18 12:04 | PN.RENAL_ITS ---
Subjective Subjective no new events Objective Data Objective Data Vital Signs: Vital Signs Temp Pulse Resp BP Pulse Ox O2 Del Method O2 Flow Rate 98.4 F 69 18 151/79 H 97 Room Air 2 01/18/25 02:15 01/18/25 02:15 01/18/25 02:15 01/18/25 02:15 01/18/25 02:15 01/18/25 10:00 01/14/25 08:29 FiO2 21 01/12/25 20:10 Oxygen Flow Rate (L/min) 2 Oxygen Delivery Method Room Air Weight: 103.3 kg Body Mass Index (BMI) 34.4 Intake & Output: Intake and Output for Last 24 Hours 01/16/25 01/17/25 01/18/25 23:59 23:59 23:59 Intake Total 2806.67 / 2806.67 3418.34 / 3418.34 50 / 50 Output Total 350 / 350 900 / 2100 1600 / 1600 Balance 2456.67 / 2456.67 2518.34 / 1318.34 -1550 / -1550 Lab / Micro Data 01/18/25 07:11 01/18/25 07:11 Labs: Laboratory Results - last 24 hr 01/17/25 14:45: U Random Total Protein 6.4, Urine Creatinine 36.40 L, Protein/Creatinin Ratio 176 01/18/25 07:11: WBC 14.8 H, RBC 3.69 L, Hgb 10.6 L, Hct 30.7 L, MCV 83.2, MCH 28.7, MCHC 34.5, RDW Std Deviation 41.8, RDW Coeff of Pedro 13.8, Plt Count 447, MPV 10.0, Neut % (Auto) Not Reportable, Absolute Neuts (auto) 12.3 H, Absolute Lymphs (auto) 0.44 L, Total Counted 100, Neutrophils % (Manual) 83 H, L ymphocytes % (Manual) 3 L, Monocytes % (Manual) 6, Eosinophils % (Manual) 6 H, Metamyelocytes % 1, Myelocytes % 1 H, Nucleated RBCs/100 WBC 1, Diff Path Review December, Platelet Estimate A, RBC Morphology NORM C+C, Polychromasia 1+, Ovalocytes 1+, Sodium 135, Potassium 3.2 L, Chloride 103, Carbon Dioxide 16.2 L, Anion Gap 16 H, BUN 70 H, Creatinine 6.03 H, Estim Creat Clear Calc 13.47 L, Est GFR (MDRD) Non-Af 9 L, BUN/Creatinine Ratio 11.6, Glucose 162 H, Calcium 7.5 L Micro: Microbiology 01/12/25 08:10 Wound - Leg, Right Gram Stain - Final 01/12/25 08:10 Wound - Leg, Right Wound Culture - Final Streptococcus group G Coag Negative Staph 01/12/25 08:10 Wound - Leg, Right Skin and Soft Tissue MRSA/MSSA (PCR - Final 01/11/25 20:00 Blood Culture (Wb) - Anticubital Right Blood Culture - Final No growth in 5 days. 01/11/25 20:00 Blood Culture (Wb) - Anticubital Left Blood Culture - Final No growth in 5 days. 01/14/25 03:00 Urine, Random Urine Culture - Final Culture exhibits no growth. 01/14/25 02:59 Sputum, Expectorated/Coughed Gram Stain - Final 01/14/25 02:59 Sputum, Expectorated/Coughed Respiratory Culture - Final 01/14/25 03:00 Urine, Random Legionella Antigen - Final 01/14/25 03:00 Urine, Random Streptococcus pneumoniae Antigen (M - Final 01/12/25 03:15 Mucosa - Nasopharyngeal Respiratory Panel (PCR) - Final 01/11/25 21:48 Mucosa - Nose SARS-CoV-2, Influenza & RSV (PCR) - Final Physical Exam Const alert, oriented x3, no apparent distress and average body habitus General Appearance: well developed Orientation / Consciousness: oriented to person, oriented to place and oriented to time HEENT normocephalic Neck no lymphadenopathy Resp no use of accessory muscles and clear to auscultation bilaterally Cardio regular rate, no murmurs and no rub GI non-tender Auscultation: normoactive bowel sounds Palpation: soft Psych cooperative Assessment & Plan Assessment/Plan (1) KIRSTEN (acute kidney injury): PLAN: Acute renal failure. Normal baseline creatinine. Persistent KIRSTEN, presumably ATN. Renal ultrasound without any hydronephrosis. Urine analysis with 2-3+ protein, minimal proteinuria on quantification. Urine sodium was elevated. Differential diagnosis include ATN due to sepsis, ATN due to vancomycin, infection related GN however urine does not appear to be like GN. c3 pending. He is off vancomycin and is on currently linezolid. cr is about the same. hopefully peak acidosis. better on bicarbonate drip. dc today hypokalemia. repleted this am
[2025-01-18 14:30] VITALS: BP 145/72; PULSE 65; RESP 18; TEMP 37.4; O2SAT 96
[2025-01-18 23:14] VITALS: BP 156/73; PULSE 70; RESP 16; TEMP 37.1; O2SAT 95
[2025-01-19 04:01] VITALS: BMI 34.5
[2025-01-19 05:18] VITALS: BP 139/70; PULSE 64; RESP 16; TEMP 36.8; O2SAT 96
[2025-01-19 06:03] LABS: Hematocrit 31.3 % (40-54); Hemoglobin 10.8 g/dL (13.0-16.5); Mean Corp Hgb Conc 34.5 g/dL (32-36); Mean Corpuscular Hgb 28.6 pg (27.0-32.0); Mean Platelet Vol. 10.1 fl (6.2-12.0); POSITIVE COUNT YES; POSITIVE MORPHOLOGY YES; Platelet Count 499 K/mm3 (150-450); RBC Distribution Width CV 13.9 % (11.6-14.6); RBC Distribution Width SD 41.7 fl (35.1-43.9); Red Blood Count 3.77 M/mm3 (4.6-6.2); White Blood Count 15.1 K/mm3 (4.4-11.0)
[2025-01-19 06:07] LABS: Differential Indicated MANUAL DIFF
[2025-01-19 06:32] LABS: Anion Gap 16 (5-15); BUN 71 mg/dL (4-19); BUN/Creat Ratio 12.3 RATIO (10-20); Calcium,Total 7.9 mg/dL (7.6-11.0); Carbon Dioxide 17.1 mmol/L (21.0-32.0); Chloride 104 mmol/L (98-108); Creatinine, Serum 5.71 mg/dL (0.70-1.20); EST Glomerular Filtration Rate 10 (>60); Estimated Creatinine Clearance 14.24 ml/min (50-250); Glucose 144 mg/dL (70-99); Potassium 3.2 mmol/L (3.3-5.1); Sodium Level 137 mmol/L (133-145)
[2025-01-19 06:33] LABS: Eosinophil 1 % (0-5); Lymphocyte 10 % (19-41); Metamyelocyte 3 % (0-1); Monocyte 7 % (0-10); Myelocyte 1 % (0-0); Neutrophil-Band 2 % (0-5); Neutrophil-Segmented 76 % (47-70); Total Cells Counted 100 (MANUAL DIFF)
[2025-01-19 06:35] LABS: Absolute Lymphocyte Count 1.51 X10^3/uL (0.83-4.51); Absolute Neutrophil Count 11.8 X10^3/uL (2.0-7.7); Platelet Estimate SLT INC (ADEQ)
[2025-01-19 06:36] LABS: Anisocytosis 1+; Polychromasia 1+; Schistocytes RARE
[2025-01-19 08:08] LABS: Complement C3 150 mg/dL (82-167)
[2025-01-19 11:00] VITALS: BP 142/72; PULSE 68; RESP 16; TEMP 36.8; O2SAT 95
[2025-01-19] MEDS: Potassium Chloride Oral Tablet 20 MEQ 40 MEQ PO (11:04)
[2025-01-19] MEDS: Ceftriaxone 2 GM in 0.9% Normal Saline (50mL MB+) 50 ML IV (11:04)
[2025-01-19] MEDS: Enoxaparin 30 MG/0.3 ML Syringe SC (11:05)
--- NOTE | 2025-01-19 11:54 | PCM.PN.REN ---
Subjective Subjective no new complaints Objective Data Objective Data Vital Signs: Vital Signs Temp Pulse Resp BP Pulse Ox O2 Del Method O2 Flow Rate 98.2 F 64 16 139/70 H 96 Room Air 2 01/19/25 05:18 01/19/25 05:18 01/19/25 05:18 01/19/25 05:18 01/19/25 05:18 01/19/25 05:18 01/14/25 08:29 FiO2 21 01/12/25 20:10 Oxygen Flow Rate (L/min) 2 Oxygen Delivery Method Room Air Weight: 103.5 kg Body Mass Index (BMI) 34.5 Intake & Output: Intake and Output for Last 24 Hours 01/17/25 01/18/25 01/19/25 23:59 23:59 23:59 Intake Total 3418.34 / 3418.34 1440 / 1690 450 / 450 Output Total 900 / 2100 2475 / 2825 350 / 350 Balance 2518.34 / 1318.34 -1035 / -1135 100 / 100 Lab / Micro Data 01/19/25 05:07 01/19/25 05:07 Labs: Laboratory Results - last 24 hr 01/18/25 07:11: Complement C3 150 01/19/25 05:07: WBC 15.1 H, RBC 3.77 L, Hgb 10.8 L, Hct 31.3 L, MCV 83.0, MCH 28.6, MCHC 34.5, RDW Std Deviation 41.7, RDW Coeff of Pedro 13.9, Plt Count 499 H, MPV 10.1, Neut % (Auto) Not Reportable, Absolute Neuts (auto) 11.8 H, Absolute Lymphs (auto) 1.51, Total Counted 100, Neutrophils % (Manual) 76 H, Band Neutrophils % 2, Lymphocytes % (Manual) 10 L, Monocytes % (Manual) 7, Eosinophils % (Manual) 1, Metamyelocytes % 3 H, Myelocytes % 1 H, Platelet Estimate SLT INC, Polychromasia 1+, Anisocytosis 1+, Schistocytes RARE, Sodium 137, Potassium 3.2 L, Chloride 104, Carbon Dioxide 17.1 L, Anion Gap 16 H, BUN 71 H, Creatinine 5.71 H, Estim Creat Clear Calc 14.24 L, Est GFR (MDRD) Non-Af 10 L, BUN/Creatinine Ratio 12.3, Glucose 144 H, Calcium 7.9 Micro: Microbiology 01/12/25 08:10 Wound - Leg, Right Gram Stain - Final 01/12/25 08:10 Wound - Leg, Right Wound Culture - Final Streptococcus group G Coag Negative Staph 01/12/25 08:10 Wound - Leg, Right Skin and Soft Tissue MRSA/MSSA (PCR - Final 01/11/25 20:00 Blood Culture (Wb) - Anticubital Right Blood Culture - Final No growth in 5 days. 01/11/25 20:00 Blood Culture (Wb) - Anticubital Left Blood Culture - Final No growth in 5 days. 01/14/25 03:00 Urine, Random Urine Culture - Final Culture exhibits no growth. 01/14/25 02:59 Sputum, Expectorated/Coughed Gram Stain - Final 01/14/25 02:59 Sputum, Expectorated/Coughed Respiratory Culture - Final 01/14/25 03:00 Urine, Random Legionella Antigen - Final 01/14/25 03:00 Urine, Random Streptococcus pneumoniae Antigen (M - Final 01/12/25 03:15 Mucosa - Nasopharyngeal Respiratory Panel (PCR) - Final 01/11/25 21:48 Mucosa - Nose SARS-CoV-2, Influenza & RSV (PCR) - Final Physical Exam Const alert, oriented x3, no apparent distress and average body habitus General Appearance: well developed Orientation / Consciousness: oriented to person, oriented to place and oriented to time HEENT normocephalic Neck no lymphadenopathy Resp no use of accessory muscles and clear to auscultation bilaterally Cardio regular rate, no murmurs and no rub GI non-tender Auscultation: normoactive bowel sounds Palpation: soft Psych cooperative Assessment & Plan Assessment/Plan (1) KIRSTEN (acute kidney injury): PLAN: Acute renal failure. Normal baseline creatinine. Persistent KIRSTEN, presumably ATN. Renal ultrasound without any hydronephrosis. Urine analysis with 2-3+ protein, minimal proteinuria on quantification. Urine sodium was elevated. Differential diagnosis include ATN due to sepsis, ATN due to vancomycin, infection related GN however urine does not appear to be like GN. c3 normal. more likely ATN. He is off vancomycin. cr is better acidosis. better hypokalemia. better cr is better, urine output is good. likely recovering ATN. from nephrology standpoint no further work up and he can be discharged. he says he is going home and a friend is going to help him. needs BMP next week. maría hospitalist
--- NOTE | 2025-01-19 12:35 | CASEMGMT ---
Addendum entered by Deanna Rodriguez 01/19/25 15:19: CHAY FREGOSO into pt room, pt is aware that an appt was not able to be made. He is aware to call their office tomorrow if he does not hear from them. Pt denies any further homegoing needs. Addendum entered by Deanna Rodriguez 01/19/25 15:16: Pt with dc order in. TC to [facility] to try to schedule appt again, left with patient information and requested they call pt back to schedule appt as he is being dc'd. Addendum entered by Deanna Rodriguez 01/19/25 12:53: TC to [facility], they do not accept pt insurance. CHAY FREGOSO into pt room to make aware. Pt has chosen [facility]. TC to their office, left with request to return call for a new patient appt. Original Note: CHAY FREGOSO into pt room to discuss dc planning. Pt states he feels safe to go home. States he is fine with his crutches. Pt states he plans to go to [place] for a short time to stay with a friend who can assist him. Pt states he received a local healthcare provider directory list. Pt speaking with his sister on phone and had her on hold. Pt states he will set up his own PCP. Reinforced the importance of this and follow up. Pt sister then asked to be on speakerphone and asked CHAY FREGOSO to set this up for pt. Pt did agree to this. Pt did not want sister to discuss anything further with CHAY FREGOSO, he hung up on sister. Pt then agreed to go with [facility] in [place]. Pt does not have a preference of male, female, day or time of appt. Pt would like the soonest available. CHAY FREGOSO to set up.
--- NOTE | 2025-01-19 14:56 | DCINST_ITS ---
Discharge Instructions Diet Discharge Diet: Low fat / Low cholesterol DC O2, CPAP, BIPAP needs Home O2 Discharge instructions: No Dressing / Incision Discharge Activity: Return to Normal Activity Dressing / Incision Call your doctor if you observe: Fever of 101 or Higher, Shortness of breath, Dizziness and Chest pain Follow Up Care Test Results: Test results from this visit will be discussed in further detail at your follow- up appointment, if applicable. Discharge Plan Admission Admit Date/Time: 01/11/25 21:49 Primary Reason for Your Visit: Sepsis due to cellulitis, KIRSTEN Attending Provider: Ivonne Burgess Primary Care Provider: Care Physician,No Primary Consulting Providers: Della Luther; Yakov Kathleen; Ivonne Burgess; Domitila Ken; Juan Yeung Instructions Patient Instructions: Coping with Kidney Failure, Cellulitis Dc Discharge Orders/Prescriptions Prescriptions: New cefdinir 300 mg capsule 300 mg PO DAILY Qty: 5 0RF Referrals / Follow Up: Janae Chawla MD [Med Staff - Active Staff] - Within 2 Weeks (see to establish PCP care) Domitila Ken MD [Med Staff - Consulting] - Within 1 Week Care Physician,No Primary [Primary Care Provider] - Disposition Disposition (needs filled in before D/C Order can be placed): Home, Self Care
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
[2025-01-19 17:13] VITALS: BP 163/75; PULSE 60; RESP 16; TEMP 36.7; O2SAT 97
[2025-01-26 11:30] LABS: Pathologist Review Reviewed
== END 2025-01-19 18:03 | disposition home or self-care (01) | DRG 602 ==
LOC: ED 21:48 → PCU 22:22 → MS3 01-15 14:25
PROVIDERS: Family Medicine; Internal Medicine Nephrology; Admitting Provider Family Medicine; Emergency Provider Surgery; Visit Provider Student in an Organized Health Care Education/Training Program
DX: L03.115 Cellulitis of right lower limb (principal); N17.0 Acute kidney failure with tubular necrosis; E87.29 Other acidosis; E87.1 Hypo-osmolality and hyponatremia; N17.9 Acute kidney failure, unspecified; Z89.612 Acquired absence of left leg above knee; E66.9 Obesity, unspecified; E86.0 Dehydration; E87.6 Hypokalemia; R73.9 Hyperglycemia, unspecified; Z79.2 Long term (current) use of antibiotics; R09.02 Hypoxemia; E66.811 Obesity, class 1; R45.1 Restlessness and agitation; Z68.34 Body mass index [BMI] 34.0-34.9, adult
CPT/HCPCS: 36415; 71046; 76770; 80048; 80053; 80202; 81001; 82436; 82570; 83036; 83605; 83735; 83880; 84100; 84133; 84156; 84300; 85025; 85610; 85730; 86160; 87040; 87070; 87077; 87086; 87205; 87449; 87631; 87633; 87640; 93971; 94762; 97116; 97161; 97165; 97530; 97803; 99285; A4216; J0295; J0696